=== PATIENT | female | born 1955 | race Caucasian/White ===

== ENCOUNTER 2019-11-18 21:34 | Emergency (ER) | payer MEDICARE, SELFPAY | END 2019-11-18 23:44 | disposition home or self-care (01) | PROVIDERS: Emergency Provider Emergency Medicine; Visit Provider Emergency Medicine | DX: G43.C1 Periodic headache syndromes in child or adult, intractable (principal); B00.1 Herpesviral vesicular dermatitis | CPT/HCPCS: 96361; 96374; 96375 ×3; 99284; J1100; J1885; J2765 ==